=== PATIENT | female | born 1970 | race Caucasian/White ===

== ENCOUNTER 2019-12-11 12:12 | Observation (INO) ==
[2019-12-11 12:53] LABS: Eosinophils # (auto) 0.12 K/uL (0-0.5); Eosinophils % (auto) 1.7 %; Hematocrit (blood only) 39.4 % (37-47); Hemoglobin 13.2 g/dL (12.0-16.0); Immature Granulocytes # (auto) 0.01 K/uL (0.00-0.02); Immature Granulocytes % (auto) 0.1 %; Lymphocytes # (auto) 1.79 K/uL (1.2-3.4); Lymphocytes % (auto) 25.2 %; Mean Corpuscular Hemoglobin 28.7 pg (25-34); Mean Corpuscular Hgb Conc 33.5 g/dL (32-36); Mean Corpuscular Volume 85.7 fL (80-100); Mean Platelet Volume 10.2 fL (7.4-10.4); Monocytes # (auto) 0.52 K/uL (0.11-0.59); Monocytes % (auto) 7.3 %; Neutrophils # (auto) 4.66 K/uL (1.4-6.5); Neutrophils % (auto) 65.7 %; Platelet Count 198 K/uL (130-400); RDW Coefficient of Variation 13.6 % (11.5-14.5); RDW Standard Deviation 42.2 fL (36.4-46.3)
--- NOTE | 2019-12-11 12:54 | XRay Report ---
XR chest 1V portable CLINICAL HISTORY: Chest Pain COMPARISON STUDY: No previous studies for comparison. FINDINGS: The bones soft tissues and hemidiaphragms are normal. The cardiomediastinal silhouette is n ormal. The lungs are clear. The pulmonary vasculature is normal. IMPRESSION: Negative chest. ACT 112: Negative or not required by law. The above report was generated using voice recognition software. It may contain grammatical, syntax or spelling errors. Electronically signed by: Spike Rousseau M.D. 12/11/2019 12:53 PM
[2019-12-11 13:05] LABS: Partial Thromboplastin Time 26.5 Seconds (21.0-31.0); Prothrombin Time 10.2 Seconds (9.0-12.0)
--- NOTE | 2019-12-11 13:07 | Emergency Department Note ---
Entered by Lotus Penn acting as a scribe for History of Present Illness General Chief complaint: Chest Pain Stated complaint: CHEST PAIN Time Seen by Provider: 12/11/19 12:40 Source: patient History of Present Illness Onset (ago): week(s) 2 Location: chest Pain Consistency: + intermittent Maximum Pain Intensity: 1 Quality: + sharp and + other (heaviness) Exacerbated By: not by movement Associated symptoms: + chest pain; no fever/chills and no shortness of breath Treatments prior to arrival: none The patient is a 49 year old female presenting to the Emergency Department complaining of intermittent chest pain starting 2 weeks ago. The patient reports that she has been experiencing sharp chest pains that last for about 10 minutes. She states that her chest pain turned into a heaviness last night. She explains that this heaviness lasted for an hour last night and for about 20 minutes today [employer]. She notes that exertion doesnt onset her chest pain. She adds that she took no medication for her symptoms [employer]. The patient reports that her father from a heart attack at the age of 54. She states that she has siblings but that she is the oldest and that her siblings have not had any pertinent cardiac events. She notes that she used to smoke cigarettes in her 20s but has quit. She adds that she doesn't take any medications regularly. The patient denies shortness of breath, fevers and chills. Past Med/Surg History Medical History (Updated 12/11/19 @ 13:30 by Lotus Penn) History of mammogram Surgical History (Updated 12/11/19 @ 12:52 by Lotus Penn) No pertinent past surgical history Social History Feels Safe at Home: Yes Smoking Status: Former smoker Review of Systems See HPI for pertinent positives & negatives. and A total of 10 systems reviewed and were otherwise negative Physical Exam Vital Signs Vital Signs - 24 hr 12/11/19 12:19 12/11/19 12:48 12/11/19 12:50 Temperature 36.4 C L Temperature Source Oral Pulse Rate 86 88 84 Pulse Rate from SpO2 Sensor 88 83 Respiratory Rate 20 17 18 Blood Pressure 160/102 H Blood Pressure Mean 121 Pulse Oximetry 98 98 96 Oxygen Delivery Method Room Air Sepsis Recent Fever Within 48 Hours No Sepsis Action Taken by Nursing No Action Required 12/11/19 12:53 12/11/19 13:00 12/11/19 13:10 Temperature Temperature Source Pulse Rate 82 78 Pulse Rate from SpO2 Sensor Respiratory Rate 16 14 Blood Pressure 127/86 Blood Pressure Mean 98 Pulse Oximetry 99 Oxygen Delivery Method Room Air Sepsis Recent Fever Within 48 Hours Sepsis Action Taken by Nursing CONSTITUTIONAL/VITAL SIGNS: Reviewed / noted above. GENERAL: Non-toxic in appearance. INTEGUMENTARY: Warm, dry, and [place]. HEAD: Normocephalic. EYES: without scleral icterus or trauma. ENT/OROPHARYNX: clear and moist. LYMPHADENOPATHY/NECK: Is supple without lymphadenopathy or meningismus. RESPIRATORY: Lungs clear and equal. CARDIOVASCULAR: Regular rate and rhythm. GI/ABDOMEN: Soft and nontender. No organomegaly or pulsatile mass. No rebound or guarding. Normal bowel sounds. EXTREMITIES: Warm and well perfused. BACK: No CVA tenderness. NEUROLOGICAL: Intact without focal deficits. PSYCHIATRIC: normal affect. MUSCULOSKELETAL: Normally developed with good muscle tone. Course Course 1244: Previous medical records were reviewed. The patient was evaluated in room B11B. A complete history and physical examination was performed. 1324: I reevaluated the patient at this time. I updated her on her imaging study and lab work. 1330: I discussed the patient's case with Dr. Romano - [facility]. He will evaluate the patient for further management. Administered Medications Discontinued Medications Aspirin (Aspirin) 324 mg PO NOW STA Stop: 12/11/19 13:22 Last Admin: 12/11/19 13:39 Dose: 324 mg Documented by: [id number] Aspirin (Aspirin) Confirm Administered Dose 324 mg .ROUTE .STK-MED ONE Stop: 12/11/19 13:36 Last Admin: 12/11/19 13:39 Dose: Not Given Documented by: [id number] Nitroglycerin (Nitro-Bid 2%) 0.5 inch EXT NOW ONE Stop: 12/11/19 13:22 Last Admin: 12/11/19 13:39 Dose: 0.5 inch Documented by: [id number] Nitroglycerin (Nitro-Bid 2%) Confirm Administered Dose 18 inch .ROUTE .STK-MED ONE Stop: 12/11/19 13:36 Last Admin: 12/11/19 13:39 Dose: Not Given Documented by: [id number] Medical Decision Making Differential Diagnosis Differential diagnoses includes but is not limited to acute coronary syndrome, myocardial infarction, pericarditis, pulmonary embolus, aortic dissection, pneumonia, pneumothorax, musculoskeletal, shingles, esophageal. Medical Records Attestation: I reviewed the patient's medical records. Home Medications Current Medication List: was personally reviewed by me Laboratory Data Attestation: I reviewed the patient's lab results. Result diagrams: 12/11/19 12:45 12/11/19 12:45 Lab Results 12/11/19 12/11/19 12/11/19 Range/Units 12:45 12:45 12:45 WBC 7.10 (4.8-10.8) K/uL RBC 4.60 (4.2-5.4) M/uL Hgb 13.2 (12.0-16.0) g/dL Hct 39.4 (37-47) % MCV 85.7 (80-100) fL MCH 28.7 (25-34) pg MCHC 33.5 (32-36) g/dL RDW Std Deviation 42.2 (36.4-46.3) fL RDW Coeff of Ramón 13.6 (11.5-14.5) % Plt Count 198 (130-400) K/uL MPV 10.2 (7.4-10.4) fL Immature Gran % (Auto) 0.1 % Neut % (Auto) 65.7 % Lymph % (Auto) 25.2 % [place] % (Auto) 7.3 % Eos % (Auto) 1.7 % Baso % (Auto) 0.0 % Immature Gran # (Auto) 0.01 (0.00-0.02) K/uL Neut # (Auto) 4.66 (1.4-6.5) K/uL Lymph # (Auto) 1.79 (1.2-3.4) K/uL [place] # (Auto) 0.52 (0.11-0.59) K/uL Eos # (Auto) 0.12 (0-0.5) K/uL Baso # (Auto) 0.00 (0-0.2) K/uL PT 10.2 (9.0-12.0) Seconds INR 1.0 (0.9-1.1) APTT 26.5 (21.0-31.0) Seconds PTT Ratio 1.0 Sodium 138 (136-145) mmol/L Potassium 3.6 (3.5-5.1) mmol/L Chloride 107 (98-107) mmol/L Carbon Dioxide 25 (21-32) mmol/L Anion Gap 6.0 (3-11) BUN 12 (7-18) mg/dl Creatinine 0.77 (0.6-1.2) mg/dl Est Cr Clr Drug Dosing Not Reportable Est GFR ( Amer) 103.6 Est GFR (Non-Af Amer) 89.4 BUN/Creatinine Ratio 16.0 (10-20) Glucose 123 H (70-99) mg/dl Calcium 8.7 (8.5-10.1) mg/dl Total Bilirubin 0.3 (0.2-1) mg/dl AST 18 (15-37) U/L ALT 29 (12-78) U/L Alkaline Phosphatase 84 (45-117) U/L Troponin I 0.063 H* (0-0.045) ng/ml Total Protein 7.3 (6.4-8.2) gm/dl Albumin 3.3 L (3.4-5.0) gm/dl Globulin 4.0 (2.5-4.0) gm/dl Albumin/Globulin Ratio 0.8 L (0.9-2) Lipase 149 (73-393) U/L Imaging Data Radiologist's Impression: Radiology results as stated below per my review and the radiologist's interpretation: XR chest 1V portable CLINICAL HISTORY: Chest Pain COMPARISON STUDY: No previous studies for comparison. FINDINGS: The bones soft tissues and hemidiaphragms are normal. The cardiomediastinal silhouette is normal. The lungs are clear. The pulmonary vasculature is normal. IMPRESSION: Negative chest. ACT 112: Negative or not required by law. The above report was generated using voice recognition software. It may contain grammatical, syntax or spelling errors. Electronically signed by: Spike Rousseau M.D. 12/11/2019 12:53 PM ECG Data Attestation: I personally reviewed and interpreted this ECG as follows: Indication: + chest pain Rate (beats per minute): 93 Rhythm: + normal sinus ECG Intervals/blocks: + Normal QT-c ECG ST segments: no ST elevation ECG Findings: no PVCs Blood Pressure Blood Pressure Findings: Elevated blood pressure Blood Pressure Disposition: further management by hospitalist MDM Narrative This is a 49-year-old female who presents to the ED with a chief complaint of a sharp pinching-like chest pain in her chest intermittently over the past couple of weeks. It is not exertion related. She states that the last for less than 10 minutes. She also states that she had some heaviness last night and then again at once today. Last night's episode lasted for an hour today lasted for about 20 minutes. It is since resolved. The patient states that she is concerned about her symptoms because her dad at the age of 54 from an [place]. The bad also had other medical problems and was a smoker. The patient is not a smoker. She denies any past medical history. Her vital signs reveal some hypertension. Her physical exam was otherwise unremarkable. A twelve-lead EKG reveals a normal sinus rhythm at a rate of 93 without acute injury or ectopy. Chest x-ray was negative for acute disease. CBC and chemistry panel was normal troponin was elevated at 0.063. The patient was treated with aspirin p.o. as well as subcu Lovenox and Nitropaste. She was told the results of the test. She will be seen by the hospitalist for further evaluation and care. Impression & Plan Non-ST elevation [place] (NSTEMI) Discharge Plan Visit Data Chief Complaint: Chest Pain Stated Complaint: CHEST PAIN ED Provider: Lakhwinder Kirby Discharge Problem: Non-ST elevation [place] (NSTEMI) Patient Disposition: Being Evaluated by Hospitalist Forms Stand Alone Forms: My [facility] Referrals Referrals: Neli Parekh DO [Primary Care Provider] - The scribe's documentation has been prepared under my direction and personally reviewed by me in its entirety. I confirm that the note above accurately reflects all work, treatment, procedures, and medical decision making performed by me.
[2019-12-11 13:09] LABS: Alanine Aminotransferase 29 U/L (12-78); Albumin Level 3.3 gm/dl (3.4-5.0); Aspartate Aminotransferase 18 U/L (15-37); Blood Urea Nitrogen 12 mg/dl (7-18); Calcium 8.7 mg/dl (8.5-10.1); Carbon Dioxide 25 mmol/L (21-32); Chloride 107 mmol/L (98-107); Est GFR (African American) 103.6; Est GFR (Non-African American) 89.4; Glucose 123 mg/dl (70-99); Lipase 149 U/L (73-393); Potassium 3.6 mmol/L (3.5-5.1); Sodium 138 mmol/L (136-145)
[2019-12-11 13:18] LABS: Albumin Globulin Ratio 0.8 (0.9-2); Alkaline Phosphatase 84 U/L (45-117); Bilirubin,Total 0.3 mg/dl (0.2-1); Total Protein 7.3 gm/dl (6.4-8.2); Troponin I 0.063 ng/ml (0-0.045)
[2019-12-11] MEDS ORDERED: ASPIRIN CHEW 324 MG PO STA (13:21)
[2019-12-11] MEDS ORDERED: ENOXAPARIN 100 MG/1ML SYR SQ ONE (13:21)
[2019-12-11] MEDS ORDERED: NITROGLYCERIN 2% OINTMENT 30GM TUBE EXT ONE (13:21)
[2019-12-11] MEDS ORDERED: NITROGLYCERIN 2% OINTMENT 30GM TUBE ONE (13:35)
[2019-12-11] MEDS ORDERED: ASPIRIN CHEW 324 MG ONE (13:35)
--- NOTE | 2019-12-11 14:15 | History & Physical Report ---
Date of Service December 11, 2019 Assessment & Plan (1) Non-ST elevation [place] (NSTEMI): Patient with atypical chest pain symptoms, significant family history, and is very minimally elevated troponin is concerning for a very mild non-STEMI. Therefore, the patient will be admitted. Patient was given a full dose aspirin and will be started on therapeutic dose of Lovenox. I would also like to add a small dose of metoprolol. I will continue to trend cardiac enzymes. Check fasting lipids. I will ask cardiology to evaluate for consideration to non- emergent cardiac cath. Low-dose p.o. Ativan also ordered for anxiety. History of Present Illness Primary Care Provider: Neli Parekh, This is a 49-year-old female without medical history that presents today complaining of chest pain. Patient somewhat emotional but is a good historian. For approximately the last 2 weeks patient has been having intermittent chest pain. Patient tells me the episodes last approximately 5-10minutes and seemed to resolve completely. They do not seem to be related with activity. In fact, she does exercise and do physical things without experiencing this pain. Earlier this morning, the sensation may have woken up for sleep. This made her more concerned and she decided to seek medical attention in the emergency room. Patient describes the pain as a "pinching" although there may be some associated heaviness with this. There are occasional palpitations but these are not consistent. She denies any shortness of breath or significant radiations with this. Pain seems to be substernal or over the left pectoral area. At time my evaluation she was not experiencing any symptoms. Her blood pressure was elevated but I suspect this is due to her being somewhat upset at staying in the hospital. Patient denies all other symptoms, including bowel issues, edema, recent weight changes. Allergies Allergy/AdvReac Type Severity Reaction Status Date / Time No Known Allergies Allergy Unverified 12/11/19 13:57 Home Medications Home Medications Medication Instructions Recorded Confirmed Type No Known Home Medications 12/11/19 12/11/19 History Past Med/Surg History Medical History (Updated 12/11/19 @ 13:30 by Lotus Penn) History of mammogram Surgical History (Updated 12/11/19 @ 12:52 by Lotus Penn) No pertinent past surgical history Social History Feels Safe at Home: Yes Smoking Status: Former smoker Review of Systems Constitutional: no fever, no chills, no weakness, no weight loss and no weight gain Eyes: as per Subjective / HPI Respiratory: no cough, no chest congestion, no dyspnea and no dyspnea on exertion Cardiovascular: + chest pain, + chest pain at rest and + palpitations; no radiating jaw, neck or arm pain, no dyspnea on exertion, no orthopnea, no lightheadedness and no edema Gastrointestinal: no abdominal pain, no nausea, no vomiting, no constipation and no diarrhea/loose stools Genitourinary: no dysuria, no difficulty urinating, no urinary frequency, no urinary hesitancy, no urinary urgency and no flank pain Musculoskeletal: no back pain, no neck pain, no joint pain, no stiffness and no myalgia Integumentary: no rash Neurologic: no gait abnormality, no unsteadiness, no falls and no generalized weakness Physical Exam Constitutional: cooperative; no acute distress Neck: trachea midline, no thyromegaly Respiratory: normal respiratory effort Auscultation: lungs clear to auscultation bilaterally; no crackles, no rales, no rhonchi and no wheezes Cardiovascular: Rate/Rhythm: regular rate and regular rhythm Heart Sounds: normal S1, normal S2 and + murmur Gastrointestinal (Abdomen): Inspection/Auscultation: abdomen normal to inspection Percussion/Palpation: abdomen soft; abdomen nontender, no guarding, abdomen not rigid and no hepatosplenomegaly Skin: no rashes, warm and dry Psychiatric: Patient is somewhat upset but is otherwise awake alert and oriented. Results & Data Vital Signs (Past 12 Hours) Vital Signs Temp Pulse Resp BP Pulse Ox 12/11/19 13:10 78 14 12/11/19 13:00 82 16 127/86 12/11/19 12:53 99 12/11/19 12:50 84 18 96 12/11/19 12:48 88 17 98 12/11/19 12:19 36.4 C L 86 20 160/102 H 98 Laboratory Results Lab work was reviewed and is essentially normal with exception of a glucose of 123. Also of note, her troponin 0 0.063. Diagnostic Findings XR chest 1V portable CLINICAL HISTORY: Chest Pain COMPARISON STUDY: No previous studies for comparison. FINDINGS: The bones soft tissues and hemidiaphragms are normal. The cardiomediastinal silhouette is normal. The lungs are clear. The pulmonary vasculature is normal. IMPRESSION: Negative chest. --- PG Care Time/CCT Total # of Minutes Spent Total Time Spent with Patient: Total time spent is greater than 50% in coordination of care (as documented) at patient's floor/unit and/or counseling patient: Coding Level of Care Code 02767 Initial Inpt Care Lvl 3 Diagnoses Non-ST elevation [place] (NSTEMI) I21.4
[2019-12-11] MEDS ORDERED: LORazepam 0.5 MG TAB PO PRN (16:05)
[2019-12-11] MEDS ORDERED: ZOLPIDEM TARTRATE 5 MG TAB PO PRN (16:05)
[2019-12-11] MEDS ORDERED: ONDANSETRON INJ 2 MG/ML 2 ML VIAL IV PRN (16:05)
[2019-12-11] MEDS ORDERED: ENOXAPARIN 1 MG/KG SC SCH (16:05)
[2019-12-11] MEDS ORDERED: ACETAMINOPHEN 325 MG TAB PO PRN (16:05)
--- NOTE | 2019-12-11 17:56 | Cardiology Consultation ---
Date of Consultation December 11, 2019 Assessment & Plan (1) Chest pain: The patient symptoms of pinching and sharp chest discomfort are clearly noncardiac. The etiology is unclear but this is not related to coronary artery disease or an acute coronary syndrome. The symptoms she had last night could be characteristic of an acute coronary syndrome. However, her symptoms were quite prolonged in nature and her biomarker elevation is very mild. 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 Do not believe she requires continue nitroglycerin. We discussed options for evaluation. Patient had some concerns regarding premature coronary disease in her family. It also appears that another family member had atypical chest pains, normal preliminary evaluation but was discovered to have a maker during catheterization. I did describe the process of catheterization and its attendant risks. I also describe stress testing. At this point I think either would be reasonable evaluation for the patient and who you sure decision making and deciding the best way to proceed. For tonight I think we will simply monitor her on telemetry and watch her biomarker trend. We can decide on an evaluation in the morning. History of Present Illness Reason for Consultation: Chest pain, elevated troponin Requesting Physician: Juan Antonio Attending Physician: Gary Romano, DO History of Present Illness Patient is a 49-year-old woman without a known history of cardiac disease who has been experiencing symptoms of pinching and sharp chest pains for several weeks. These episodes happen randomly. They are not associated with activity. They tend to occur in the left upper chest area. They are not associated with breathing difficulty or dizziness. They are very transient in nature. Last evening the patient had a different sensation which she describes as a heaviness in her chest. She states that this was fairly mild in severity and did not radiate to the neck, back or arms. There was no associated dyspnea. It was not positional in nature. There is no pleuritic component. She feels that the episode lasted for over an hour before she fell asleep. When she woke the next morning she did not have symptoms. She actually exercise for 20 minutes this morning without symptoms. However, while driving later in the day she began experience chest pressure again. She presented to the emergency room where she was administered nitroglycerin paste and eventually had resolution of her symptoms. Cardiac biomarkers were drawn and were felt to be elevated. Therefore, she was admitted for observation. Patient is an active individual who was used to exercising. She has intensified her exercise recently but generally has no limitations associated with activity. She denies limiting dyspnea. She does not have orthopnea. No dizziness or syncope. A very rare palpitation that she describes as a flutter. This is fleeting in nature and not associated with other symptoms. Allergies Allergy/AdvReac Type Severity Reaction Status Date / Time No Known Allergies Allergy Unverified 12/11/19 13:57 Home Medications Home Medications Medication Instructions Recorded Confirmed Type No Known Home Medications 12/11/19 12/11/19 History Patient History Medical History History of mammogram Surgical History No pertinent past surgical history Social History Preferred Language: Macedonian Communication Ability: Effective Quitline Counselor Required: No Beliefs That Will Affect Care: None Current Living Situation: Family Other Information That Helps Us Care for You: No Feels Safe at Home: Yes Safety Concerns: Feels Safe At This Time Smoking Status: Former smoker Do You Dip or Chew Tobacco: No ; Second Hand Exposure: No ; Tobacco Cessation Education Requested by Patient: No Hx Alcohol Use: Yes Hx Substance Use: No Review of Systems Review of Systems: All systems reviewed & are unremarkable except as noted in HPI & below No recent constitutional symptoms such as fevers or chills. Eating and drinking well. Physical Exam Physical Exam: She is alert and oriented x3. Mood affect appear normal. She answered all questions appropriately. HEENT: Sclerae are anicteric. Pupils are equal and reactive to light and accommodation. Extraocular movements were intact. Neuro: Cranial nerves intact Neck: Examination of the submandibular region did not reveal any significant lymphadenopathy. Carotids are palpable bilaterally and free of bruits on auscultation. There was no evidence of jugular venous distention. The thyroid was not enlarged. Lungs: Lungs are clear to auscultation bilaterally. There are no rales wheezes or rhonchi. She has normal respiratory effort without use of accessory muscles. There is normal pulmonary excursion. Cardiac: The rhythm was regular. S1 and S2 were normal. There are no murmurs on examination. The PMI was not markedly displaced on palpation. Abdomen: The abdomen was soft and nontender. Extremities: Patient has bilateral radial pulses that are equal in intensity. There is no evidence cyanosis or clubbing. There was no evidence of significant peripheral edema bilaterally. Skin: There are no rashes noted on examination today. Results & Data ([facility]) Vital Signs (Past 12 Hours) Vital Signs Temp Pulse Pulse Resp BP BP Pulse Ox 12/11/19 16:22 74 12/11/19 16:08 37.3 C 77 18 143/92 H 96 12/11/19 15:29 77 20 155/96 H 98 12/11/19 15:20 77 22 12/11/19 15:10 77 24 12/11/19 15:04 75 21 165/107 H 12/11/19 15:00 76 19 12/11/19 14:50 74 21 12/11/19 14:40 67 19 12/11/19 14:30 67 13 161/108 H 12/11/19 14:20 84 26 H 12/11/19 14:10 77 18 12/11/19 14:00 87 20 160/116 H 12/11/19 13:50 80 13 12/11/19 13:40 78 24 12/11/19 13:39 76 15 151/105 H 97 12/11/19 13:38 83 12/11/19 13:20 80 16 12/11/19 13:10 78 14 12/11/19 13:00 82 16 127/86 12/11/19 12:53 99 12/11/19 12:50 84 18 96 12/11/19 12:48 88 17 98 12/11/19 12:19 36.4 C L 86 20 160/102 H 98 Laboratory Results Abnormal Lab Results 12/11/19 12/11/19 12/11/19 12:45 12:45 12:45 WBC 7.10 RBC 4.60 Hgb 13.2 Hct 39.4 MCV 85.7 MCH 28.7 MCHC 33.5 RDW Std Deviation 42.2 RDW Coeff of Ramón 13.6 Plt Count 198 MPV 10.2 Immature Gran % (Auto) 0.1 Neut % (Auto) 65.7 Lymph % (Auto) 25.2 [place] % (Auto) 7.3 Eos % (Auto) 1.7 Baso % (Auto) 0.0 Immature Gran # (Auto) 0.01 Neut # (Auto) 4.66 Lymph # (Auto) 1.79 [place] # (Auto) 0.52 Eos # (Auto) 0.12 Baso # (Auto) 0.00 PT 10.2 INR 1.0 APTT 26.5 PTT Ratio 1.0 Sodium 138 Potassium 3.6 Chloride 107 Carbon Dioxide 25 Anion Gap 6.0 BUN 12 Creatinine 0.77 Est Cr Clr Drug Dosing Not Reportable Est GFR ( Amer) 103.6 Est GFR (Non-Af Amer) 89.4 BUN/Creatinine Ratio 16.0 Glucose 123 H Calcium 8.7 Total Bilirubin 0.3 AST 18 ALT 29 Alkaline Phosphatase 84 Troponin I 0.063 H* Total Protein 7.3 Albumin 3.3 L Globulin 4.0 Albumin/Globulin Ratio 0.8 L Lipase 149 12/11/19 16:19 WBC RBC Hgb Hct MCV MCH MCHC RDW Std Deviation RDW Coeff of Ramón Plt Count MPV Immature Gran % (Auto) Neut % (Auto) Lymph % (Auto) [place] % (Auto) Eos % (Auto) Baso % (Auto) Immature Gran # (Auto) Neut # (Auto) Lymph # (Auto) [place] # (Auto) Eos # (Auto) Baso # (Auto) PT INR APTT PTT Ratio Sodium Potassium Chloride Carbon Dioxide Anion Gap BUN Creatinine Est Cr Clr Drug Dosing Est GFR ( Amer) Est GFR (Non-Af Amer) BUN/Creatinine Ratio Glucose Calcium Total Bilirubin AST ALT Alkaline Phosphatase Troponin I 0.066 H* Total Protein Albumin Globulin Albumin/Globulin Ratio Lipase Diagnostic Findings Chest x-ray obtained this time admission was normal ECG Additional Comments: EKG obtained at the time of admission was normal PG Care Time/CCT Total # of Minutes Spent Total Time Spent with Patient: Total time spent is greater than 50% in coordination of care (as documented) at patient's floor/unit and/or counseling patient: Coding Level of Care Code 73366 Office/OBS Consult Lvl 4 Diagnoses Chest pain R07.9
[2019-12-11] MEDS: METOPROLOL TARTRATE 25 MG TAB PO SCH (20:02)
[2019-12-11] MEDS: ENOXAPARIN 100 MG/1ML SYR SQ SCH (22:41)
[2019-12-12 06:35] LABS: Basophils # (auto) 0.01 K/uL (0-0.2); Basophils % (auto) 0.1 %; Eosinophils # (auto) 0.11 K/uL (0-0.5); Eosinophils % (auto) 1.6 %; Hematocrit (blood only) 39.7 % (37-47); Hemoglobin 13.3 g/dL (12.0-16.0); Immature Granulocytes # (auto) 0.01 K/uL (0.00-0.02); Immature Granulocytes % (auto) 0.1 %; Lymphocytes # (auto) 2.07 K/uL (1.2-3.4); Mean Corpuscular Hemoglobin 28.8 pg (25-34); Mean Corpuscular Hgb Conc 33.5 g/dL (32-36); Mean Corpuscular Volume 85.9 fL (80-100); Mean Platelet Volume 10.4 fL (7.4-10.4); Monocytes # (auto) 0.65 K/uL (0.11-0.59); Monocytes % (auto) 9.4 %; Neutrophils # (auto) 4.04 K/uL (1.4-6.5); Neutrophils % (auto) 58.8 %; Platelet Count 177 K/uL (130-400); RDW Coefficient of Variation 13.6 % (11.5-14.5); RDW Standard Deviation 42.4 fL (36.4-46.3); Red Blood Count 4.62 M/uL (4.2-5.4); White Blood Count 6.89 K/uL (4.8-10.8)
[2019-12-12 07:07] LABS: BUN Creatinine Ratio 13.7 (10-20); Calcium 8.9 mg/dl (8.5-10.1); Est GFR (African American) 105.3; Est GFR (Non-African American) 90.8; Potassium 4.1 mmol/L (3.5-5.1)
[2019-12-12] MEDS: METOPROLOL TARTRATE 25 MG TAB PO SCH ×2 (08:44→20:10)
[2019-12-12] MEDS: ENOXAPARIN 100 MG/1ML SYR SQ SCH (08:46)
[2019-12-12] MEDS ORDERED: ASPIRIN 325 MG ECTAB PO SCH (09:00)
--- NOTE | 2019-12-12 10:39 | Cardiology Progress Note ---
Date of Service December 12, 2019 Assessment & Plan (1) Chest pain: Think the likelihood that her chest pain represents an acute coronary syndrome is exceedingly low. Is possible that she has some form of coronary disease but her good exercise tolerance in the absence of anginal symptoms with activity would suggest otherwise. She continues to have very mildly elevated cardiac biomarkers and this may simply be her baseline. We did discuss options for evaluation to include noninvasive testing or coronary angiography. He seems to have some concerns regarding a strong family history of coronary disease and undiagnosed coronary disease and other relatives and is currently requesting a cardiac catheterization for evaluation. Did discuss the risks benefits and alternatives. Using shared decision making we have elected to proceed with angiography later today. We will obtain an echocardiogram today as well. Admission and Anticipated Discharge Date Admission Date: December 11, 2019 Subjective Summary the patient claims to be feeling well. Her headache that she had last evening appears to have resolved. She continues to have occasional heaviness in the precordial area. The sensations appear to be fairly mild and relatively fleeting. They are not associated with any changes in position, deep breathing or activity. She also continues to have some sharp chest pains. No prolonged episodes. Review of Systems Review of Systems: Per HPI Physical Exam Physical Exam: She is alert and oriented x3. Mood affect appear normal. She answered all questions appropriately. HEENT: Sclerae are anicteric. Pupils are equal and reactive to light and accommodation. Extraocular movements were intact. Neuro: Cranial nerves intact Lungs: Lungs are clear to auscultation bilaterally. There are no rales wheezes or rhonchi. She has normal respiratory effort without use of accessory muscles. There is normal pulmonary excursion. Cardiac: The rhythm was regular. S1 and S2 were normal. There are no murmurs on examination. The PMI was not markedly displaced on palpation. Abdomen: The abdomen was soft and nontender. Extremities: Patient has bilateral radial pulses that are equal in intensity. There is no evidence cyanosis or clubbing. There was no evidence of significant peripheral edema bilaterally. Skin: There are no rashes noted on examination today. Results & Data ([facility]) Vital Signs (Past 12 Hours) Vital Signs Temp Pulse Pulse Resp BP Pulse Ox 12/12/19 08:00 59 L 12/12/19 07:54 36.5 C 62 18 127/87 96 12/12/19 03:26 36.4 C L 75 18 128/84 95 12/12/19 00:44 59 L 12/11/19 23:58 36.4 C L 66 16 109/70 95 Laboratory Results Abnormal Lab Results 12/11/19 12/11/19 12/11/19 12:45 12:45 12:45 WBC 7.10 RBC 4.60 Hgb 13.2 Hct 39.4 MCV 85.7 MCH 28.7 MCHC 33.5 RDW Std Deviation 42.2 RDW Coeff of Ramón 13.6 Plt Count 198 MPV 10.2 Immature Gran % (Auto) 0.1 Neut % (Auto) 65.7 Lymph % (Auto) 25.2 Whiteside % (Auto) 7.3 Eos % (Auto) 1.7 Baso % (Auto) 0.0 Immature Gran # (Auto) 0.01 Neut # (Auto) 4.66 Lymph # (Auto) 1.79 Whiteside # (Auto) 0.52 Eos # (Auto) 0.12 Baso # (Auto) 0.00 PT 10.2 INR 1.0 APTT 26.5 PTT Ratio 1.0 Sodium 138 Potassium 3.6 Chloride 107 Carbon Dioxide 25 Anion Gap 6.0 BUN 12 Creatinine 0.77 Est Cr Clr Drug Dosing Not Reportable Est GFR ( Amer) 103.6 Est GFR (Non-Af Amer) 89.4 BUN/Creatinine Ratio 16.0 Glucose 123 H Calcium 8.7 Magnesium Total Bilirubin 0.3 AST 18 ALT 29 Alkaline Phosphatase 84 Troponin I 0.063 H* Total Protein 7.3 Albumin 3.3 L Globulin 4.0 Albumin/Globulin Ratio 0.8 L Triglycerides Cholesterol LDL Cholesterol, Calc VLDL Cholesterol, Calc HDL Cholesterol Cholesterol/HDL Ratio Lipase 149 TSH 12/11/19 12/11/19 12/12/19 16:19 21:50 06:16 WBC 6.89 RBC 4.62 Hgb 13.3 Hct 39.7 MCV 85.9 MCH 28.8 MCHC 33.5 RDW Std Deviation 42.4 RDW Coeff of Ramón 13.6 Plt Count 177 MPV 10.4 Immature Gran % (Auto) 0.1 Neut % (Auto) 58.8 Lymph % (Auto) 30.0 Whiteside % (Auto) 9.4 Eos % (Auto) 1.6 Baso % (Auto) 0.1 Immature Gran # (Auto) 0.01 Neut # (Auto) 4.04 Lymph # (Auto) 2.07 Whiteside # (Auto) 0.65 H Eos # (Auto) 0.11 Baso # (Auto) 0.01 PT INR APTT PTT Ratio Sodium Potassium Chloride Carbon Dioxide Anion Gap BUN Creatinine Est Cr Clr Drug Dosing Est GFR ( Amer) Est GFR (Non-Af Amer) BUN/Creatinine Ratio Glucose Calcium Magnesium Total Bilirubin AST ALT Alkaline Phosphatase Troponin I 0.066 H* 0.062 H* Total Protein Albumin Globulin Albumin/Globulin Ratio Triglycerides Cholesterol LDL Cholesterol, Calc VLDL Cholesterol, Calc HDL Cholesterol Cholesterol/HDL Ratio Lipase TSH 12/12/19 06:16 WBC RBC Hgb Hct MCV MCH MCHC RDW Std Deviation RDW Coeff of Ramón Plt Count MPV Immature Gran % (Auto) Neut % (Auto) Lymph % (Auto) Whiteside % (Auto) Eos % (Auto) Baso % (Auto) Immature Gran # (Auto) Neut # (Auto) Lymph # (Auto) Whiteside # (Auto) Eos # (Auto) Baso # (Auto) PT INR APTT PTT Ratio Sodium 139 Potassium 4.1 Chloride 108 H Carbon Dioxide 26 Anion Gap 4.0 BUN 10 Creatinine 0.76 Est Cr Clr Drug Dosing 105.0 Est GFR ( Amer) 105.3 Est GFR (Non-Af Amer) 90.8 BUN/Creatinine Ratio 13.7 Glucose 90 Calcium 8.9 Magnesium 2.0 Total Bilirubin AST ALT Alkaline Phosphatase Troponin I Total Protein Albumin Globulin Albumin/Globulin Ratio Triglycerides 159 H Cholesterol 189 LDL Cholesterol, Calc 111 VLDL Cholesterol, Calc 32 HDL Cholesterol 46 Cholesterol/HDL Ratio 4 Lipase TSH 2.000 PG Care Time/CCT Total # of Minutes Spent Total Time Spent with Patient: Total time spent is greater than 50% in coordination of care (as documented) at patient's floor/unit and/or counseling patient: Coding Level of Care Code 31273 Subseq Obs Care Lvl 2 Diagnoses Chest pain R07.9
--- NOTE | 2019-12-12 10:40 | Pre Anesthesia Assessment ---
Date of Service December 12, 2019 Pre Sedation Assessment Vital Signs Temp Pulse Pulse Resp BP BP Pulse Ox 12/12/19 08:00 59 L 12/12/19 07:54 36.5 C 62 18 127/87 96 12/12/19 03:26 36.4 C L 75 18 128/84 95 12/12/19 00:44 59 L 12/11/19 23:58 36.4 C L 66 16 109/70 95 12/11/19 19:52 36.4 C L 67 20 119/78 96 12/11/19 16:22 74 12/11/19 16:08 37.3 C 77 18 143/92 H 96 12/11/19 15:29 77 20 155/96 H 98 12/11/19 15:20 77 22 12/11/19 15:10 77 24 12/11/19 15:04 75 21 165/107 H 12/11/19 15:00 76 19 12/11/19 14:50 74 21 12/11/19 14:40 67 19 12/11/19 14:30 67 13 161/108 H 12/11/19 14:20 84 26 H 12/11/19 14:10 77 18 12/11/19 14:00 87 20 160/116 H 12/11/19 13:50 80 13 12/11/19 13:40 78 24 12/11/19 13:39 76 15 151/105 H 97 12/11/19 13:38 83 12/11/19 13:20 80 16 12/11/19 13:10 78 14 12/11/19 13:00 82 16 127/86 12/11/19 12:53 99 12/11/19 12:50 84 18 96 12/11/19 12:48 88 17 98 12/11/19 12:19 36.4 C L 86 20 160/102 H 98 Cardiovascular + regular rate Respiratory + respiratory effort normal Pre-Sedation Airway Assessment Smoking Status: Former smoker Hx Sleep Apnea: No Hx Difficult Intubation: No Short, Thick Neck: No Thyromental Distance: > or= 3.5 Finger Breadths Oral Cavity: + WNL Mallampati Class: III ASA: ASA3 Procedure Planning Contraindications for Sedation: none Current Medications Reviewed: Yes Notes The planned sedation has been discussed with the patient. Informed Consent was obtained. I have identified the patient, determined the appropriateness of sedation and have assessed the patient immediately prior to the procedure. All medicine(s) and interventions are by my order.
[2019-12-12] MEDS ORDERED: PERFLUTREN LIPID MICROSPHERE (DEFINITY) IV ONE (11:28)
--- NOTE | 2019-12-12 12:44 | XCELERA ---
[id number] [id number]
--- NOTE | 2019-12-12 14:57 | Electrocardiogram Report ---
Test Reason : Blood Pressure : / mmHG Vent. Rate : 067 BPM Atrial Rate : 067 BPM P-R Int : 156 ms QRS Dur : 092 ms QT Int : 422 ms P-R-T Axes : 034 006 051 degrees QTc Int : 445 ms Normal sinus rhythm Normal ECG When compared with ECG of 11-DEC-2019 12:18, (unconfirmed) No significant change was found Confirmed by Otis Mann ([id number]) on 12/12/2019 2:56:58 PM Referred By: REFERRED SELF Confirmed By:Vitaly Mann
--- NOTE | 2019-12-12 15:08 | Electrocardiogram Report ---
Test Reason : Blood Pressure : / mmHG Vent. Rate : 093 BPM Atrial Rate : 093 BPM P-R Int : 166 ms QRS Dur : 080 ms QT Int : 378 ms P-R-T Axes : 052 020 056 degrees QTc Int : 469 ms Normal sinus rhythm Possible Left atrial enlargement Borderline ECG No previous ECGs available Confirmed by Otis Mann ([id number]) on 12/12/2019 3:08:19 PM Referred By: REFERRED SELF Confirmed By:Vitaly Mann
[2019-12-12] MEDS ORDERED: fentaNYL citrate 100 MCG/2 ML VIAL ONE (15:20)
[2019-12-12] MEDS ORDERED: MIDAZOLAM HCL 1 MG/ML 2ML VIAL ONE (15:20)
[2019-12-12] MEDS ORDERED: NiCARDipine HCL INJ 2.5 MG/ML 10 ML AMP ONE (15:20)
[2019-12-12] MEDS ORDERED: HEPARIN (PORCINE) 1000 UNIT/ML 10 ML (CATH LAB USE ONLY) ONE (15:20)
[2019-12-12] MEDS ORDERED: NITROGLYCERIN/D5W 100MCG/ML 20ML SYR ONE (15:21)
--- NOTE | 2019-12-12 16:04 | Post Anesthesia Assessment ---
Date of Service December 12, 2019 Post Sedation Assessment Vital Signs Temp Pulse Pulse Resp BP Pulse Ox 12/12/19 11:02 36.6 C 56 L 16 120/83 96 12/12/19 08:00 59 L 12/12/19 07:54 36.5 C 62 18 127/87 96 12/12/19 03:26 36.4 C L 75 18 128/84 95 12/12/19 00:44 59 L 12/11/19 23:58 36.4 C L 66 16 109/70 95 12/11/19 19:52 36.4 C L 67 20 119/78 96 12/11/19 16:22 74 12/11/19 16:08 37.3 C 77 18 143/92 H 96 Recovery Score Activity: Moves 4 extremities Respiration: Deep Breath/Cough Circulation: +/-20% PreAnes Value Consciousness: Fully Awake Oxygen Saturation: > 92% On Room Air Discharge Sedation Level of Care: Fast Track Phase II Post Sedation Plan On clinical assessment, the patient appears to have tolerated the sedation without complications. Patient is recovering as anticipated. Patient will continue to be monitored by nursing and may be discharged when sedation discharge criteria are met per below protocol. Upon Completions of procedure up to 15 minutes continue every 5 minute vital signs and the P.A.R. score; then discharge to a Phase I or Fast Track to Phase II per the following guidelines: * Discharge Patient to appropriate Phase II area if PAR is 8 or greater or return to pre- procedure baseline. The post - procedure orders will be as directed. * If PAR score is less than 8 or not return to pre-procedure baseline then patient will follow Phase I monitoring till PAR is reached for Phase II. The Phase I may be done in procedure room or may call to secure a Phase I area. * If naloxone or flumazenil are used for reversal, hold in Phase I for continued monitoring from when last reversal dose was given for a minimum of 60 minutes or longer pending the nurse and/or physician discretion of patient condition before discharge to Phase II. Please call the Sedation Physician to re-evaluate and complete post-note for discharge to Phase II area. Do NOT discharge from procedure sedation or Phase 1 until post- sedation evaluation note is complete by procedure /sedation MD Sedation Discharge Instructions to be given to the patient at discharge to home.
--- NOTE | 2019-12-12 16:04 | Cardiac Catheterization ---
[facility] Data: [employer] Cardiac Status Clinical evaluation leading to the procedure CAD Presenation: Non STEMI Diagnostic Physicians Name: Otis Mann MD Closure Device Recommendations: Medical Therapy and/or Counseling Cardiac Cath Procedure Full Procedure Date December 12, 2019 Pre-Procedure Diagnosis Pre-Procedure Diagnosis: Non STEMI AUC Score AUC Score: 7 Post-Procedure Diagnosis Post-Procedure Diagnosis: Mild CAD Procedure(s) Performed Procedure(s) Performed: Coronary Angiography and Left Heart Cath Dye Padder Operator Otis Mann MD Estimated Blood Loss Estimated Blood Loss: 5cc Medication(s) Medication(s): Fentanyl, Heparin, Lidocaine 1%, Nicardipine, Nitroglycerin and Versed Summary of Findings Indication: The patient is a 49-year-old woman with a history of atypical chest discomfort but elevated cardiac biomarkers who is elected to undergo coronary angiography for diagnostic purposes. Procedure in detail: The patient was informed of the risk benefits and alternatives to the intended procedure. She understood and wished to proceed. She was taken to the cardiac catheterization suite in a fasting state. Conscious addition was administered per protocol and the patient was monitored electrocardiographically throughout today's procedure. The right wrist area was prepped and draped in usual sterile fashion. Area over the right radial artery was anesthetized using subcutaneous ministration of lidocaine solution. Right radial artery was subsequently accessed using Seldinger technique and a 5 Chinese arterial sheath was placed at the site over a guidewire. The sheath was used to facilitate passage of the cardiac catheters for engagement of the coronary arteries and left heart catheterization. Images were taken multiple orthogonal views prior to removal of the catheters and sheath. Hemostasis was achieved at the access site using manual pressure and an arterial band. The patient tolerated procedure well. There were no immediate complications. Equipment used: 5 Chinese [place] 4, 5 Chinese [place] 2 Findings: Coronary angiography Left main: Left main was normal in size and caliber and bifurcated normally into the left anterior descending and left circumflex arteries. Left circumflex: The left circumflex artery was a normal sized vessel which reaches the apex. It produced a medium sized first diagonal branch and a very large branching second diagonal system. There was some additional diminutive diagonals in the distal portion of the vessel. There is no significant disease in this vessel. Left circumflex: Left circumflex was a nondominant vessel. It produced a first large OM system. It produced a medium sized second OM. The ongoing circumflex vessel in between the first and second obtuse marginal branches had approximately 40% stenosis in its midportion. Right coronary artery: The right coronary artery was a dominant vessel. It had some luminal irregularities in its proximal portion with approximately 10% stenosis at the worst segment. There is no other obstructive disease in this distribution. Hemodynamics Rest Ao:: 104/70 mmHg Final Ao: 118/72 mmHg LV: 123 over 5 mmHg, left ventricular end-diastolic pressure 10 mmHg Recommendations Recommendations: Medical Therapy and/or Counseling Radiation Exposure (mGy) q Contrast (mls) 60 Procedural Complication(s) None Disposition PCU I attest to the content of the Intraoperative Record and any orders documented therein. Any exceptions are noted below. [facility] Card Cath Procedure Codes Cardiac Catheterization Procedure 1: Cardiovascular Cath Procedures: 43861 Coronaries and LHC (+/-LV) Moderate Sedation Procedure 1: Sedation/Anesthesia: 61736 Mod Sedation by the same physician;Init15 Min Child Age 5 & Up Procedure 2: Sedation/Anesthesia: 32710 Mod Sedation by the same physician; Ea [id number] Minutes PG Care Time/CCT Total # of Minutes Spent Total Time Spent with Patient: Total time spent is greater than 50% in coordination of care (as documented) at patient's floor/unit and/or counseling patient:
[2019-12-12] MEDS ORDERED: ACETAMINOPHEN 325 MG TAB PO PRN (16:05)
--- NOTE | 2019-12-12 19:45 | Discharge Summary ---
Date of Service December 12, 2019 Admission HPI Per Admitting Provider This is a 49-year-old female without medical history that presents today complaining of chest pain. Patient somewhat emotional but is a good historian. For approximately the last 2 weeks patient has been having intermittent chest pain. Patient tells me the episodes last approximately 5-10minutes and seemed to resolve completely. They do not seem to be related with activity. In fact, she does exercise and do physical things without experiencing this pain. Earlier this morning, the sensation may have woken up for sleep. This made her more concerned and she decided to seek medical attention in the emergency room. Patient describes the pain as a "pinching" although there may be some associated heaviness with this. There are occasional palpitations but these are not consistent. She denies any shortness of breath or significant radiations with this. Pain seems to be substernal or over the left pectoral area. At time my evaluation she was not experiencing any symptoms. Her blood pressure was barbara vated but I suspect this is due to her being somewhat upset at staying in the hospital. Patient denies all other symptoms, including bowel issues, edema, recent weight changes. Principal Diagnosis Chest pain-atypical Discharge Exam Constitutional WD/WN, vitals as above + obese Eyes + anicteric sclerae Neck trachea midline, no thyromegaly Respiratory normal respiratory effort, lungs clear to auscultation Cardiovascular RRR, no murmur, no edema Extremities: no calf tenderness (and negative Darlene's sign bilat) Chest (Breasts) Chest: normal inspection of chest Gastrointestinal (Abdomen) normal bowel sounds, soft, nontender, no hepatosplenomegaly Musculoskeletal Extremities: extremities normal to inspection; no cyanosis and no clubbing Skin no rashes, warm and dry Neurologic moves all extremities and awake; no focal motor deficits Psychiatric A+Ox3, euthymic affect Lymphatic no lymphedema Discharge Data Allergies Allergy/AdvReac Type Severity Reaction Status Date / Time No Known Allergies Allergy Unverified 12/11/19 13:57 Consultations 12/11/19 13:30 ED Decision to Admit Stat 12/11/19 16:05 Consult Cardiology Routine Procedures Performed Operation Date: 12/12/19 13:00 Actual Procedures p Cath, Left with Cors and Vent - Jeremy Mann MD s Cineradiography w/Routine Exam - Jeremy Mann MD Ordered Studies 12/12/19 11:55 CL Cath Imgs for PACS use only Routine 12/12/19 15:16 CL Cath Imgs for PACS use only Routine CXR ECHO Hospital Course (1) Chest pain: Patient presented with atypical central and left sided chest pain symptoms, off and on for 2 weeks. Each time would come on at rest or sometimes after eating, and then woke her from sleep; it did not come on with exertion. Sometimes last a few minutes and longest was one hour. She felt it was pinching in nature, sometimes heavy. No pleuritic pain, no cough, no fevers, no indigestion. No radiation to shoulders, and after reading about cardiac symptoms, thought maybe she felt a little something in her left side of neck. She denied any associated SOB, nausea, diaphoresis. She had complete resolution of symptoms between episodes. No calf pains or leg swelling. ECGs normal, troponin serially 0.06 x 3 occasions ECHO normal except mild MR Pain went away on its own each time. SHe initially was given nitro which gave her a headache, ASA, and low dose metoprolol. SHe was also given Lovenox x 1 dose on admission. Cardiology consulted and felt it was not cardiac, but offered stress test vs cath given +troponin and strong +FH. Pt opted for cardiac cath which showed mild CAD, nonobstructive. Lipid panel fairly good. Do not suspect PE. Very atypical and could be GI vs MSK in nature -start mod dose of atorvastatin 20mg daily for mild CAD, no aspirin needed and no Cardiology follow up needed -trial of Protonix 40mg daily x 2 weeks to see if helps and could point towards GI source -f/u with PCP (2) Elevated troponin: as above, unclear significance, could be normal for her No evidence of pericarditis and does not seem typical clinically for that either (3) CAD (coronary artery disease), [place] coronary artery: mild, as above -starting statin advised Mediterranean diet (4) Mitral regurgitation: mild -f/u with PCP (5) DVT prophylaxis: Lovenox SQ given Dispo-stable for dc to home Total Time Total Time Spent Total Time Spent (In Minutes): 35 min Total Time Includes: Examination of the Patient, Discharge Planning, Medication Reconciliation and Communication With Other Providers (Cardiology) Discharge Plan Discharge Items Patient Disposition: Home - Self-Care Reason For Visit: SP, ELEVATED TROP Discharge Diagnosis: Chest pain-atypical, noncardiac Condition on Discharge: Good Activity: As commented below Lifting: None Lifting Comment: with the right hand Driving/Machine Use: Resume 3 days after discharge Non-emergency contact: Primary Care Provider Call non-emergency contact if: you have any medication questions, your symptoms worsen, your pain is not controlled, your pain is worsening, your pain is unusual for you, your pain is concerning for you, your wound has increased redness, your wound has increased drainage and your wound pain has increased Follow-up/Referrals: Neli Parekh DO [Primary Care Provider] - (Follow up within 1-2 weeks. ) Diet: Heart Healthy Addtl Attending Provider Instructions: You were admitted for chest pains and had a mildly elevated cardiac marker called troponin. This remained only slightly high throughout your hospitalization and it was not felt that you had a heart attack. You had a cardiac catheterization which only showed mild coronary artery disease and the Electrical Installation Supervisor recommended a low dose cholesterol medication called atorvastatin to prevent further plaque buildup in the arteries. Your chest xray was negative and you had no other concerning signs or symptoms for blood clot or pneumonia in the lungs. Your pain resolved prior to discharge. Because your symptoms were coming and going, not exertional, and your cardiac workup was negative, you may have a gastrointestinal cause of your pains. Please trial a 2 week course of Protonix once daily in the morning to see if this prevents you from having further pain. This is an antacid. Follow up with your PCP within 1-2 weeks after discharge. If you have worsening chest pain, shortness of breath, or any other acute concerns, please return to the hospital for further evaluation. ACTIVITY RECOMMENDATIONS: Excess manipulation of the wrist should be avoided for the next 24-48 hours. * No lifting over 2 pounds (approximately a 1/2 gallon of milk) with the utilized arm for 24 hours. * No strenuous activity such as bowling or tennis for 3 days. * Keep the site of the procedure covered with a bandage for 24 hours. *You may shower the day after the procedure. Do not take a tub bath or submerge the puncture site in water for the next 3 days. *Do not operate any motorized equipment for 3 days. SPECIAL CARE INSTRUCTIONS: The site may be slightly bruised and sore following your procedure. Should any of the following occur, contact the Dr. who performed your procedure. 1. Redness/inflammation, swelling, chills, or fever, or colored drainage at procedure site within 3-7 days after your procedure. 2. Coldness, discoloration, ongoing numbness, severe pain, or swelling. Expect mild tingling of hand and tenderness at the puncture site for up to three days. If this persists beyond three days, or other symptoms develop, notify the Dr. who performed your procedure. BLEEDING: If the procedure site on your wrist begins to bleed, do not panic 1. Place 1 or 2 fingers firmly just slightly above the insertion site to stop the bleeding. You may be able to feel your pulse as you hold pressure. 2. Lift your finger after 5 minutes to see if the bleeding has stopped. 3. Once the bleeding has stopped, gently wipe the wrist area clean with a bandage. * If the bleeding from your wrist does not stop after 10 minutes, or if there is a large amount of bleeding or spurting, call 911 (do not drive yourself to the hospital). SKIN IRRITATION: * You may experience some redness and/or swelling in the area where radiation was administered. If any skin irritation occurs, please contact your family physician. FOLLOW UP VISIT: Keep any scheduled doctor appointments. Pending Studies at Discharge: No Stand-Alone Forms: My [facility] Medications and DC Order Prescriptions: New atorvastatin 20 mg tablet 20 mg PO DAILY Qty: 30 RF: 0 pantoprazole [Protonix] 40 mg tablet,delayed release (DR/EC) 40 mg PO DAILY Qty: 14 RF: 0 No Action No Known Home Medications RF: 0 Discharge Orders: Discharge Order (Routine); Ordered 12/12/19 Ordered By: Nimo Carver Admission Data Admit Date/Time: 12/11/19 14:20 Attending Provider: Nimo Carver Admit Provider: Gary Romano Primary Care Provider: Neli Parekh Other Providers: Gary Romano ; Jeremy Alonso Coding Level of Care Code D/C Day Management >30 mins Diagnoses Chest pain R07.9 Elevated troponin R79.89 CAD (coronary artery disease), [place] coronary artery I25.10 Mitral regurgitation I34.0 DVT prophylaxis Z29.9
== END 2019-12-12 20:14 | disposition home or self-care (01) | DRG 287 ==
LOC: ED 12:12 → 2S 14:20 → INTOOBSV 14:20 → SUATTDRO 14:20 → 2S 15:29

== ENCOUNTER 2025-02-21 16:23 | Observation (INO) ==
[2025-02-21 17:21] LABS: Hematocrit (blood only) 41.4 % (37.0-47.0); Hemoglobin 13.9 g/dl (12.0-16.0); Mean Corpuscular Hemoglobin 28.3 pg (25.0-34.0); Mean Corpuscular Hgb Conc 33.6 g/dL (32.0-36.0); Mean Corpuscular Volume 84.3 fL (80.0-100.0); Mean Platelet Volume 10.8 fL (9.4-12.4); Platelet Count 192 K/uL (130-400); RDW Coefficient of Variation 13.2 % (11.5-14.5); RDW Standard Deviation 40.6 fL (36.4-46.3); Red Blood Count 4.91 M/uL (4.20-5.40)
--- NOTE | 2025-02-21 17:23 | CT Scan Report ---
Clinical History: Left arm numbness Technique: Axial computed tomography images were obtained of the brain from the vertex to the skull base without intravenous contrast. Findings: There is no sign of intracranial hemorrhage. There is normal aponte-white matter differentiation with no sign of acute or old infarction. No midline shift or other form of herniation is identified. There is no hydrocephalus. No obvious mass lesion is seen on this noncontrast examination. There is fluid in the visualized right maxillary sinus. The mastoid air cells appear clear Impression: 1. Normal-appearing brain 2. Right maxillary sinusitis Electronically signed by Elijah Goel 02-21-2025 5:22 PM
[2025-02-21 17:40] LABS: Albumin Globulin Ratio 1.4 (0.9-2); Albumin Level 4.3 gm/dl (3.4-5.0); BUN Creatinine Ratio 19.5 (10-20); Bilirubin,Total 0.3 mg/dl (0.2-1.0); Calcium 9.1 mg/dl (8.6-10.3); Creatinine Clr Calc Pharmacy 89.3 ml/min; Magnesium 2.1 mg/dl (1.7-2.4); Total Protein 7.3 gm/dl (6.0-8.3)
--- NOTE | 2025-02-21 17:43 | XRay Report ---
Clinical History: Possible stroke Technique: A frontal view of the chest was obtained Comparison is made to the prior examination dated 08/06/2024 Findings: There are no confluent pulmonary infiltrates. The heart size is within normal limits. No pleural effusion or pneumothorax is seen. There is no definite pulmonary nodule. No fracture is noted. There is mild scoliosis Impression: No active disease Electronically signed by Elijah Goel 02-21-2025 5:43 PM
--- NOTE | 2025-02-21 17:50 | Emergency Department Note ---
Impression & Plan Left sided numbness ED Provider Note NAME: MARIZOL SILVA AGE: 54 SEX: Female INFORMANT: Patient ED PROVIDER(S): Eric Dale MD CHIEF COMPLAINT: Left-sided numbness PLAN: Disposition: Admitted Outpatient prescription management: none Referral: None MEDICAL DECISION MAKING: Patient presented because of left-sided numbness. Symptoms had resolved after about an hour. Stroke alert considered however the patient was asymptomatic. She was hypertensive. Patient is not a TNK candidate based upon resolution of symptoms. Protocol imaging and laboratory testing performed. On my examination patient NIH stroke scale of 0. She was doing well. CT imaging of the head was negative except for mild right sided sinus disease. CBC and chemistry panel was unremarkable. Patient is afebrile. Patient has no nuchal rigidity or headache on examination. CT angiography of the head and neck were added due to the strokelike symptoms. Thankfully this was negative. Further evaluation and management in the hospital be necessary. Oral aspirin was given. Consultation was made with Dr. Thapa of the [facility] service. Case discussed and diagnostics were reviewed. Patient was evaluated in the ER for further management. Care/management discussed with: manager msw Level of care consideration(s): After review of the information above and other included data, I feel the patient requires escalation of care to admission Triage Nursing notes: reviewed and agree them. Vital Signs: reviewed and remarkable for hypertension Additional History obtained from: none Chronic Medical/Social Conditions affecting care: none Prior/ Outside/ External records reviewed: none Differential Diagnosis: CVA, TIA, Infection, dehydration, metabolic abnormality, hypo/hyperglycemia, electrolyte disturbance, anemia, hypoxia, cardiac sources, intracerebral event, toxicologic, neurologic, as well as other pathologies. Diagnostics, independently interpreted by me: ECG: Twelve-lead ECG reveals normal sinus rhythm at [address] LVH. No ST elevation. Cardiac Monitoring: Cardiac monitoring ordered by me: The patient was placed on continuous cardiac monitoring and observed. It revealed a normal sinus rhythm at 80 beats per minute without ectopy or evidence of dysrhythmia. Medical decision rules: none Imaging studies: Head CT: A noncontrast CT scan of the head was performed and was negative for tumor, fracture, intracranial hemorrhage, or other acute pathology. Chest x-ray. Findings: A chest x-ray was performed and revealed no pneumothorax, effusion, infiltrate, pulmonary edema, free air under the diaphragm, or wide mediastinum. Impression: No acute disease. HPI: 54 year old Female arrives for evaluation of left sided numbness. This started 1530 and is now resolved. The patient also notes the following associated symptoms, left face and left arm numbness. The patient has taken no medication relieving factors. Current pain is rated as 0/10. Pt denies LOC, headache, fevers, chills, diaphoresis, visual changes, neck pain, chest pain, breathing difficulties, nausea, vomiting, abdominal pain, back pain, melena, hematochezia, urinary symptoms, weakness, lymphadenopathy, rash, or other complaints. PAST MEDICAL HISTORY: See Below, migraines, lyme PAST SURGICAL HISTORY: See Below, SOCIAL HISTORY: See Below, non-smoker HOME MEDICATIONS: See Below ALLERGIES: See Below VITALS: See Below PHYSICAL EXAMINATION: GENERAL: Awake, alert, well-appearing, in no distress HENT: Normocephalic, atraumatic. Oropharynx unremarkable. EYES: Normal conjunctiva. Sclera non-icteric.PERRL, EOMI NECK: Inspection normal. Non-tender. Supple. No nuchal rigidity. FROM. No masses. RESPIRATORY: Clear to auscultation. No wheezes. No rales. Normal respiratory effort. CARDIAC: Normal rate. Normal rhythm. No murmurs. No rubs. Extremities warm and well perfused. Pulses equal. No JVD. GI: Soft, non-distended. No tenderness to palpation. No rebound or guarding. No masses. RECTAL: Deferred. MUSCULOSKELETAL: Atraumatic. Chest examination reveals no tenderness. The back is symmetrical on inspection without obvious abnormality. There is no CVA tenderness to palpation. No joint edema. LOWER EXTREMITIES: Calves are equal size bilaterally and non-tender. No edema. No discoloration. NEURO: Normal sensorium. No sensory or motor deficits noted. Speech normal, no drift. CN2-12 intact. SKIN: No rash or jaundice noted. PROCEDURES: none CRITICAL CARE: none OBSERVATION NOTE: none Past Med/Surg History Problem List (Updated 02/21/25 @ 17:50 by Eric Dale MD) Left sided numbness (Acute) Cholelithiasis Palpitation Mitral regurgitation Lab test negative for COVID-19 virus (Acute) Colon cancer screening Encounter for pre-operative examination History of mammogram Lyme disease Choledocholithiasis Medical History History of COVID-04 AUG 2022 Acid reflux HX OF / RESOLVED Elevated blood pressure reading 11/22/22 ON EYE EXAM, F/U [facility] WITH PCP 11/24/22 NO SYMPTOMS History of high blood pressure DURING Mitral regurgitation CAD (coronary artery disease), [place] coronary artery Surgical History Hx of cardiac cath C/P...NOV 2019..NO STENT(S) C/P HAS RESOLVED, PT REPORTS BELIEVES IT WAS DUE TO STRESS H/O tympanostomy H/O adenoidectomy Family History Father Myocardial infarction Mother Coronary heart disease Dyslipidemia Grandmother (Maternal) Colorectal cancer Grandmother (Paternal) Cancer Social History (Updated 10/16/24 @ 12:12 by Renay Patterson RN) Smoking Status: Former smoker Second Hand Exposure: No; Do You Dip or Chew Tobacco: No; Hx Alcohol Use: Yes Alcohol type: wine Hx Substance Use: No Preferred Language: Honduran Communication Ability: Effective Hand Candy Molder Required: No Beliefs That Will Affect Care: None marital status: Current Living Situation: Family Current Living Situation Comment: SON current occupational status: employed Feels Safe at Home: Yes Diet: regular during the past year weight has: remained stable Assistive Devices: Glasses Allergies Allergies Allergy/AdvReac Type Severity Reaction Status Date / Time cat dander Allergy Unknown Itchy/ Verified 02/21/25 17:29 Rhinitis No Known Drug Allergies Allergy Unknown Unknown Verified 02/21/25 17:29 Home Meds Home Medications Medication Instructions Recorded Confirmed acetaminophen 500 mg tablet 1,000 mg PO Q6H PRN Pain 08/06/24 02/21/25 ibuprofen 200 mg tablet 200 mg PO Q6H PRN Pain 08/06/24 02/21/25 aspirin 81 mg tablet,delayed 81 mg PO DAILY 10/16/24 02/21/25 release (Adult Low Dose Aspirin) Results & Data (ED) Vital Signs Vital Signs - 24 hr 02/21/25 16:29 02/21/25 17:35 02/21/25 17:35 Temperature 36.7 C Temperature Source Temporal Artery Scan Pulse Rate 70 Pulse Rate [Apical] 63 Respiratory Rate 16 18 Respiratory Effort / Characteristics Non-Labored Spontaneous Non-Labored Spontaneous Respiratory Depth Normal Normal Respiratory Pattern Regular Blood Pressure 156/103 H Blood Pressure [Left Arm] 137/90 Blood Pressure Mean 120 Blood Pressure Mean [Left Arm] 105 Pulse Oximetry 95 96 97 Oxygen Delivery Method Room Air Room Air Room Air Sepsis Recent Fever Within 48 Hours No Sepsis New/Unexplained Change in Mental Status No Sepsis Action Taken by Nursing No Action Required 02/21/25 17:35 02/21/25 18:30 02/21/25 18:40 Temperature Temperature Source Pulse Rate 61 Pulse Rate [Apical] 60 Respiratory Rate 18 Respiratory Effort / Characteristics Non-Labored Spontaneous Respiratory Depth Normal Respiratory Pattern Regular Blood Pressure Blood Pressure [Left Arm] 171/91 H Blood Pressure Mean Blood Pressure Mean [Left Arm] 117 Pulse Oximetry 97 96 Oxygen Delivery Method Room Air Room Air Sepsis Recent Fever Within 48 Hours Sepsis New/Unexplained Change in Mental Status Sepsis Action Taken by Nursing 02/21/25 19:00 Temperature Temperature Source Pulse Rate Pulse Rate [Apical] 61 Respiratory Rate 17 Respiratory Effort / Characteristics Respiratory Depth Respiratory Pattern Blood Pressure Blood Pressure [Left Arm] 174/114 H Blood Pressure Mean Blood Pressure Mean [Left Arm] 134 Pulse Oximetry 97 Oxygen Delivery Method Room Air Sepsis Recent Fever Within 48 Hours Sepsis New/Unexplained Change in Mental Status Sepsis Action Taken by Nursing Laboratory Data 02/21/25 16:55 02/21/25 16:55 Lab Results 02/21/25 Range/Units 16:55 WBC 5.50 (4.8-10.8) K/ul RBC 4.91 (4.20-5.40) M/uL Hgb 13.9 (12.0-16.0) g/dl Hct 41.4 (37.0-47.0) % MCV 84.3 (80.0-100.0) fL MCH 28.3 (25.0-34.0) pg MCHC 33.6 (32.0-36.0) g/dL RDW Std Deviation 40.6 (36.4-46.3) fL RDW Coeff of Ramón 13.2 (11.5-14.5) % Plt Count 192 (130-400) K/uL MPV 10.8 (9.4-12.4) fL PT 10.1 (9.0-12.0) Seconds INR 0.9 (0.9-1.1) APTT 27 (21-31) Seconds PTT Ratio 1.0 Sodium 139 (136-145) mmol/L Potassium 4.0 (3.5-5.1) mmol/L Chloride 107 (98-107) mmol/L Carbon Dioxide 27 (21-32) mmol/L Anion Gap 5 (3-11) BUN 16 (6-23) mg/dl Creatinine 0.82 (0.6-1.2) mg/dl Est Cr Clr Drug Dosing 89.3 ml/min eGFR 83.90 BUN/Creatinine Ratio 19.5 (10-20) Glucose 98 (70-99(Fasting)) mg/dl Calcium 9.1 (8.6-10.3) mg/dl Magnesium 2.1 (1.7-2.4) mg/dl Total Bilirubin 0.3 (0.2-1.0) mg/dl AST 16 (13-39) U/L ALT 14 (7-52) U/L Alkaline Phosphatase 80 (34-104) U/L Total Protein 7.3 (6.0-8.3) gm/dl Albumin 4.3 (3.4-5.0) gm/dl Globulin 3.0 (2.5-4.0) gm/dl Albumin/Globulin Ratio 1.4 (0.9-2) Administered Medications Discontinued Medications Ioversol (Optiray 320 125ml) 118 ml IV ONCE ONE Stop: 02/21/25 18:34 Last Admin: 02/21/25 18:33 Dose: 118 ml Documented By: GES Imaging Data Radiologist's Impression: Chest X-Ray 02/21/25 16:32 Clinical History: Possible stroke Technique: A frontal view of the chest was obtained Comparison is made to the prior examination dated 08/06/2024 Findings: There are no confluent pulmonary infiltrates. The heart size is within normal limits. No pleural effusion or pneumothorax is seen. There is no definite pulmonary nodule. No fracture is noted. There is mild scoliosis Impression: No active disease Electronically signed by Elijah Goel 02-21-2025 5:[address] 02/21/25 16:32 Clinical History: Left arm numbness Technique: Axial computed tomography images were obtained of the brain from the vertex to the skull base without intravenous contrast. Findings: There is no sign of intracranial hemorrhage. There is normal aponte-white matter differentiation with no sign of acute or old infarction. No midline shift or other form of herniation is identified. There is no hydrocephalus. No obvious mass lesion is seen on this noncontrast examination. There is fluid in the visualized right maxillary sinus. The mastoid air cells appear clear Impression: 1. Normal-appearing brain 2. Right maxillary sinusitis Electronically signed by Elijah Goel 02-21-2025 5:22 PM Head CTA 02/21/25 17:55 Clinical history: Left-sided numbness Technique: Axial computed tomography images were obtained of the brain after the administration of intravenous contrast according to the CT angiogram protocol Findings: No definite stenosis or aneurysm is seen of the anterior, middle, or posterior cerebral artery circulations. The visualized vertebral arteries and the basilar artery appear unremarkable Impression: Unremarkable CTA of the brain Electronically signed by Elijah Goel 02-21-2025 7:33 PM Neck CTA 02/21/25 17:55 Clinical history: Left-sided numbness Technique: Axial computed tomography images were obtained of the neck after the administration of intravenous contrast according to the CT angiogram protocol Findings: No stenosis is seen of the common carotid arteries bilaterally. The carotid bulbs appear normal. The remainder of the internal carotid arteries appear patent bilaterally. No stenosis of the external carotid arteries is seen The vertebral arteries are patent bilaterally with no significant stenosis seen. The visualized thoracic aorta appears unremarkable There is right maxillary sinusitis Impression: No definite stenosis of the neck arteries Electronically signed by Elijah Goel 02-21-2025 7:34 PM Discharge Plan Visit Data Chief Complaint: TIA Symptoms Stated Complaint: NUMBNESS LEFT SIDE FACE, HEAD FEELS HEAVY ED Provider: Eric Dale Discharge Problem: Left sided numbness Patient Disposition: Admitted As Inpatient Condition: Good Forms Stand Alone Forms: My [employer] Prescriptions Prescriptions: No Action aspirin [Adult Low Dose Aspirin] 81 mg tablet,delayed release (DR/EC) 81 mg PO DAILY acetaminophen 500 mg Tablet 1,000 mg PO Q6H PRN (Reason: Pain) ibuprofen 200 mg Tablet 200 mg PO Q6H PRN (Reason: Pain) Referrals Referrals: Milton Luu [Primary Care Provider] -
[2025-02-21 17:54] LABS: INR 0.9 (0.9-1.1); Partial Thromboplastin Time 27 Seconds (21-31); Prothrombin Time 10.1 Seconds (9.0-12.0)
[2025-02-21] MEDS: OPTIRAY 320 125ml IV ONE (18:33)
--- NOTE | 2025-02-21 19:34 | CT Scan Report ---
Clinical history: Left-sided numbness Technique: Axial computed tomography images were obtained of the brain after the administration of intravenous contrast according to the CT angiogram protocol Findings: No definite stenosis or aneurysm is seen of the anterior, middle, or posterior cerebral artery circulations. The visualized vertebral arteries and the basilar artery appear unremarkable Impression: Unremarkable CTA of the brain Electronically signed by Elijah Goel 02-21-2025 7:33 PM
--- NOTE | 2025-02-21 19:35 | CT Scan Report ---
Clinical history: Left-sided numbness Technique: Axial computed tomography images were obtained of the neck after the administration of intravenous contrast according to the CT angiogram protocol Findings: No stenosis is seen of the common carotid arteries bilaterally. The carotid bulbs appear normal. The remainder of the internal carotid arteries appear patent bilaterally. No stenosis of the external carotid arteries is seen The vertebral arteries are patent bilaterally with no significant stenosis seen. The visualized thoracic aorta appears unremarkable There is right maxillary sinusitis Impression: No definite stenosis of the neck arteries Electronically signed by Elijah Goel 02-21-2025 7:34 PM
--- NOTE | 2025-02-21 20:04 | History & Physical Report ---
Date of Service February 21, 2025 Assessment & Plan (1) TIA (transient ischemic attack): (2) Primary hypertension: (3) CAD (coronary artery disease): Plan Patient is a 54-year-old female with past medical history of CAD, mitral regurg, GERD. Patient presented after an episode of sudden onset left arm and face numbness and tingling that began when she was resting on her couch, patient stated symptoms began to resolve within 5 to 10 minutes and then fully resolved within an hour. Diagnostic imaging in ED negative for any changes. She is being admitted for stroke workup including echocardiogram and MRI. #TIA - Symptoms now resolved (Not TNK candidate). Diagnostic imaging negative for acute changes - head CT noted right maxillary sinusitis. Laboratories negative. - stroke without TNK order set - active ROM, no IVs left side, Q4H neuro checks - Loading dose ASA given in ED; restart ASA 81mg daily now - start Atorvastatin 40 mg daily - adjust prn with lipid panel ordered - recheck LFTs in 2 weeks - Allow for permissive hypertension with goal parameters 220/110 until MRI resulted - no acute changes seen, decrease systolic <180 - Telemetry monitoring - brain MRI and echo with bubble study ordered - lipid panel and A1C with AM labs - B12 and TSH ordered #HTN - patient with "pre-HTN", no medical management at home. BP elevated in ED and at time of admission. - Permissive hypertension, goal parameters less than 220/110 - labetalol prn #CAD - noted history of, follows with Dr. Mann. - has not been taking baby asa at home; will resume with above VTE ppx: SCDs, low risk Dispo: med/tele - anticipate dc 02/22 after MRI and echo Admission and Anticipated Discharge Date Admission Date: 02/21/25 History of Present Illness Chief Complaint: TIA symptoms Primary Care Provider: Milton Luu Patient is a 54-year-old female with past medical history of CAD, mitral regurg, GERD. Patient presented after an episode of sudden onset left arm and face numbness and tingling that began when she was resting on her couch, patient stated symptoms began to resolve within 5 to 10 minutes and then fully resolved within an hour. Diagnostic imaging in ED negative for any changes. She is being admitted for stroke workup including echocardiogram and MRI. Patient seen at bedside with her mother present. She endorses the above. She stated that she has no history of stroke and denies any family history of stroke or she stated she has prehypertension but is not on any medications for high blood pressure. The pressures been running high in the ED, however WNL for stroke workup and permissive hypertension. She stated she previously followed with cardiology for mitral regurg and CAD however they told her she no longer needs to take baby aspirin so she was taken this in quite a while. Her last echocardiogram was in 2019. She denies any other strokelike symptoms, denies slurred speech, facial droop, dizziness, lightheadedness, confusion, lower extremity numbness or tingling with these forearms, chest pain, shortness of breath. She denies nicotine or alcohol use. She does not use any oxygen at baseline. She wishes to be full code. Allergies Allergy/AdvReac Type Severity Reaction Status Date / Time cat dander Allergy Unknown Itchy/ Verified 02/21/25 17:29 Rhinitis No Known Drug Allergies Allergy Unknown Unknown Verified 02/21/25 17:29 Home Medications Medication Instructions Recorded Confirmed Type acetaminophen 500 mg tablet 1,000 mg PO Q6H PRN Pain 08/06/24 02/21/25 History ibuprofen 200 mg tablet 200 mg PO Q6H PRN Pain 08/06/24 02/21/25 History aspirin 81 mg tablet,delayed 81 mg PO DAILY 10/16/24 02/21/25 History release (Adult Low Dose Aspirin) Past Med/Surg History Problem List (Updated 02/21/25 @ 21:46 by Jahaira Lehman PA-C) CAD (coronary artery disease) Primary hypertension TIA (transient ischemic attack) Left sided numbness (Acute) Cholelithiasis Palpitation Mitral regurgitation Lab test negative for COVID-19 virus (Acute) Colon cancer screening Encounter for pre-operative examination History of mammogram Lyme disease Choledocholithiasis Medical History History of COVID-04 AUG 2022 Acid reflux HX OF / RESOLVED Elevated blood pressure reading 11/22/22 ON EYE EXAM, F/U [facility] WITH PCP 11/24/22 NO SYMPTOMS History of high blood pressure DURING Mitral regurgitation CAD (coronary artery disease), [place] coronary artery Surgical History Hx of cardiac cath C/P...NOV 2019..NO STENT(S) C/P HAS RESOLVED, PT REPORTS BELIEVES IT WAS DUE TO STRESS H/O tympanostomy H/O adenoidectomy Family History Father Myocardial infarction Mother Coronary heart disease Dyslipidemia Grandmother (Maternal) Colorectal cancer Grandmother (Paternal) Cancer Social History (Updated 10/16/24 @ 12:12 by Renay Patterson RN) Smoking Status: Former smoker Smoking End Date: pt states she quit in her 20's; Second Hand Exposure: No; Do You Dip or Chew Tobacco: No; Hx Alcohol Use: Yes Alcohol type: wine Hx Substance Use: No Preferred Language: Greek Communication Ability: Effective Busgirl Required: No Beliefs That Will Affect Care: None marital status: Current Living Situation: Family Current Living Situation Comment: SON current occupational status: employed Other Information That Helps Us Care for You: No Feels Safe at Home: Yes Safety Concerns: Feels Safe At This Time Diet: regular during the past year weight has: remained stable Assistive Devices: Glasses Review of Systems Review of Systems: see HPI Physical Exam Physical Exam: The patient is awake, alert and oriented 3, well developed and well nourished, normocephalic and atraumatic, in no acute distress. Non-toxic appearing. HEENT- EOMI, mucous membranes moist. Hearing grossly intact. Heart-normal S1 and S2. No murmurs, rubs or gallops. Lungs-clear bilaterally, no respiratory distress, no accessory muscle use. Abdomen-normal bowel sounds and soft. No ascites noted. Non-tender. Extremities- no clubbing, cyanosis, or edema. Rheumatologic-normal range of motion. Psychiatric-normal affect. Neurologic: PERRL, EOMI, accommodation nl, no face palsy, no dysarthria no focal motor deficits and not confused Motor/Sensory: no sensory deficit Results & Data Results & Data Vital Signs (Past 12 Hours) Vital Signs Temp Pulse Pulse Resp BP BP Pulse Ox 02/21/25 19:00 61 17 174/114 H 97 02/21/25 18:40 61 02/21/25 18:30 60 18 171/91 H 96 02/21/25 17:35 97 02/21/25 17:35 97 02/21/25 17:35 63 18 137/90 96 02/21/25 16:29 36.7 C 70 16 156/103 H 95 O2 Del Method 02/21/25 19:00 Room Air 02/21/25 18:40 02/21/25 18:30 Room Air 02/21/25 17:35 Room Air 02/21/25 17:35 Room Air 02/21/25 17:35 Room Air 02/21/25 16:29 Room Air Laboratory Results reviewed CBC, CMP, pt/inr, mag Diagnostic Findings reviewed, Neck CTA, head CTA, head CT, CXR Medications Administered ed - asa 324 mg PO ECG Additional Comments: NSR Rate 71 QTc 421 Code Status & VTE Plan Code Status full code VTE Prophylaxis Plan VTE Prophylaxis will be ordered: Yes Supervising Physician Co-Signing Physician Notes patient seen and examined, chart reviewed, case discussed with KLEVER Lehman and I agree with the assessment and plan as document above. In brief, patient is a 54-year-old female with history of coronary artery disease, much regurgitation, GERD presenting with sudden onset of left sided arm and face numbness. Symptoms lasted approximately 1 hour. Patient seen in room 289 bed 2 Reports her symptoms have completely resolved. No additional symptoms at this time + S1, S2, regular, no murmurs/rubs/gallops Lungs CTA Abdomen soft, nontender, nondistended Grossly neurologically intact Labs and images reviewed MRI with no acute findings Assessment/[id number] female with history of coronary artery disease, mitral regurgitation presenting with transient left-sided facial and upper extremity weakness. Symptoms have now completely resolved. Imaging has been negative including negative MRI. Suspect TIA Initiate aspirin and atorvastatin Remainder as above PG Care Time/CCT Total # of Minutes Spent Total Time Spent with Patient: Total time spent is greater than 50% in coordination of care (as documented) at patient's floor/unit and/or counseling patient: Coding Level of Care Code 74006 INT INP/OBS CARE 3/75MIN Diagnoses TIA (transient ischemic attack) G45.9 Primary hypertension I10 CAD (coronary artery disease) I25.10
[2025-02-21] MEDS: ASPIRIN CHEW 324 MG PO STA (20:37)
[2025-02-21] MEDS ORDERED: LABETALOL HCL IV 5 MG/ML 20ML IV PRN (22:07)
[2025-02-21] MEDS ORDERED: MELATONIN 3 MG TAB PO PRN (22:07)
[2025-02-21] MEDS ORDERED: ACETAMINOPHEN 325 MG TAB PO PRN (22:07)
[2025-02-21] MEDS ORDERED: PHARMACIST DISCHARGE MED REC CONSULT PRN (22:07)
[2025-02-21] MEDS ORDERED: DOCUSATE SODIUM 100 MG CAP PO PRN (22:07)
[2025-02-21] MEDS ORDERED: ONDANSETRON INJ 2 MG/ML 2 ML VIAL IV PRN (22:07)
[2025-02-21 22:12] LABS: Thyroid Stimulating Hormone 2.298 uIu/ml (0.300-4.500)
--- NOTE | 2025-02-22 01:04 | Magnetic Resonance Report ---
Exam(s): MRI HEAD Without Contrast EXAM: MR Head Without Intravenous Contrast CLINICAL HISTORY: Reason for exam: stroke workup. TECHNIQUE: Magnetic resonance images of the head/brain without intravenous contrast in multiple planes. COMPARISON: Prior head CT from February 21, 2025. FINDINGS: Brain: Mild nonspecific white matter changes. No mass. No hemorrhage. No acute infarct. The flow voids at the base the brain are intact. There is a developmental venous anomaly in the left temporal and occipital lobe. Ventricles: Unremarkable. No ventriculomegaly. Bones/joints: Unremarkable. No acute fracture. Sinuses: Chronic maxillary, ethmoid and right frontal sinusitis. No acute sinusitis. Mastoid air cells: Unremarkable as visualized. No mastoid effusion. Orbits: Unremarkable as visualized. IMPRESSION: No evidence of acute intracranial pathology. Electronically signed by: Heather Mcnair MD 02/22/25 01:04 AM
[2025-02-22 08:11] VITALS: RESP 20; O2SAT 96
[2025-02-22 08:30] LABS: Basophils # (auto) 0.02 K/uL (0.00-0.20); Basophils % (auto) 0.4 %; Eosinophils # (auto) 0.15 K/uL (0.00-0.50); Eosinophils % (auto) 3.2 %; Hemoglobin 13.4 g/dl (12.0-16.0); Immature Granulocytes # (auto) 0.01 K/uL (0.01-0.20); Immature Granulocytes % (auto) 0.2 %; Lymphocytes % (auto) 40.7 %; Mean Corpuscular Hemoglobin 28.4 pg (25.0-34.0); Mean Corpuscular Hgb Conc 34.4 g/dL (32.0-36.0); Mean Corpuscular Volume 82.6 fL (80.0-100.0); Mean Platelet Volume 10.5 fL (9.4-12.4); Monocytes # (auto) 0.49 K/uL (0.11-0.59); Monocytes % (auto) 10.5 %; Platelet Count 158 K/uL (130-400); RDW Coefficient of Variation 13.3 % (11.5-14.5); RDW Standard Deviation 39.8 fL (36.4-46.3); Red Blood Count 4.72 M/uL (4.20-5.40); White Blood Count 4.67 K/ul (4.8-10.8)
[2025-02-22 08:46] LABS: BUN Creatinine Ratio 20.3 (10-20); Calcium 8.8 mg/dl (8.6-10.3); Creatinine Clr Calc Pharmacy 106.4 ml/min; Potassium 4.2 mmol/L (3.5-5.1)
[2025-02-22] MEDS: ATORVASTATIN 40 MG TAB PO SCH (09:00)
[2025-02-22] MEDS: ASPIRIN 81 MG ECTAB PO SCH (09:00)
[2025-02-22 09:04] LABS: Estimated Average Glucose 100 mg/dl; Hemoglobin A1C 5.1 % (4.5-5.6)
[2025-02-22 11:27] VITALS: BP 124/73; PULSE 64; TEMP 97.7
[2025-02-22] MEDS ORDERED: STROKE PATIENT DISCHARGE STA (13:17)
--- NOTE | 2025-02-22 13:29 | Discharge Summary ---
Discharge Summary Date of Service February 22, 2025 Principal Dx & Hospital Course #1 = Principal Diagnosis (1) TIA (transient ischemic attack): (2) Primary hypertension: (3) CAD (coronary artery disease): Plan 54 years old female with past medical history of FULL CODE @ home, obesity with BMI 36.5 (height 165.1 cm; weight 99.6 kg), CAD, mitral regurgitation, and GERD, who presented to [facility] ER on 02/21/2025 after one episode of sudden onset left arm and face numbness and tingling that began when she was resting on her couch; patient stated that her symptoms began to resolve within 5 to 10 minutes and then fully resolved within an hour. Diagnostic imaging in [facility] ER on observation date 02/21/2025 was negative for any changes. Patient was subsequently placed in OBSERVATION on the hospitalist service @ [facility] on 02/21/2025 with the following diagnosis: 1. TIA, R/O acute CVA. The following medical issues were addressed while the patient remained in [facility] from 02/21/2025 through 02/22/2025: #TIA - Symptoms now resolved (Not TNK candidate). Diagnostic imaging negative for acute changes - CT brain without contrast (02/21/2025, 4:32pm) noted right maxillary sinusitis, but patient remains afebrile with no edvin-pharyngeal/nasal discharge and no right/left maxillary sinus tenderness at all while in [facility]. In addition, routine labs (e.g., CBC w/diff, BMP) were unremarkable. Fasting lipid panel (02/22/2025, 7:56am) revealed total cholesterol 181, LDL 112, HDL 45, TG 121. Patient reports that she will modify her diet, exercise, and/or lifestyle over the next 6 months in order to lower her total cholesterol and LDL levels WITHOUT lipid-lowering therapy on hospital discharge back to home on 02/22/2025. Hence, patient will continue only with her home-scheduled ASA 81mg PO daily on hospital discharge back to home on 02/22/2025. Patient will also follow up with her PCP Dr. Milton uLu within 5 days of hospital discharge to discuss the official TTE (02/22/2025) report. #HTN - patient with "pre-HTN", no medical management at home. BP was elevated in ED and at time of observation with a peak BP 174/114 (02/21/2025, 7:00pm), for which no pharmacologic intervention was warranted given the concept of permissive HTN (with BP as high as 220/120 observed without pharmacologic intervention) in the first 24 hours of a suspected acute ischemic, non- hemorrhagic CVA. Subsequently, patient's BP declined to 136/89 (02/21/2025,9:50pm) followed by D/C BP 124/73 (02/22/2025, 1:21pm) with no anti- HTN medications ordered, administered, or prescribed while patient remained in [facility]. #CAD - noted history of, follows with Dr. Mann. - has not been taking baby asa at home; will resume with above VTE ppx: SCDs, low risk Dispo: med/tele - anticipate dc 02/22 after MRI and echo Admission HPI Per Admitting Provider Patient is a 54-year-old female with past medical history of CAD, mitral regurg, GERD. Patient presented after an episode of sudden onset left arm and face numbness and tingling that began when she was resting on her couch, patient stated symptoms began to resolve within 5 to 10 minutes and then fully resolved within an hour. Diagnostic imaging in ED negative for any changes. She is being admitted for stroke workup including echocardiogram and MRI. Patient seen at bedside with her mother present. She endorses the above. She stated that she has no history of stroke and denies any family history of stroke or she stated she has prehypertension but is not on any medications for high blood pressure. The pressures been running high in the ED, however WNL for stroke workup and permissive hypertension. She stated she previously followed with cardiology for mitral regurg and CAD however they told her she no longer needs to take baby aspirin so she was taken this in quite a while. Her last echocardiogram was in 2019. She denies any other strokelike symptoms, denies slurred speech, facial droop, dizziness, lightheadedness, confusion, lower extremity numbness or tingling with these forearms, chest pain, shortness of breath. She denies nicotine or alcohol use. She does not use any oxygen at baseline. She wishes to be full code. Discharge Plan Discharge Items Patient Disposition: Home - Self-Care Reason For Visit: TIA WORKUP Discharge Diagnosis: TIA, s/p rule out acute CVA. Condition on Discharge: Good Activity: Resume your previous activity Lifting: Gradually increase as tolerated Bathing: No limitations Sexual Activity: When tolerated Driving/Machine Use: No limitations Weightbearing: Full weightbearing Non-emergency contact: Primary Care Provider Call non-emergency contact if: you have any medication questions Follow-up/Referrals: Milton Luu [Primary Care Provider] - Diet: Heart Healthy Addtl Attending Provider Instructions: See your PCP Dr. Milton Luu within 5 days of hospital discharge to discuss official report of 02/22/2025 TTE. Pending Studies at Discharge: Yes Studies:: TTE (02/22/2025) report pending as of 02/22/2025, 1:17pm. Stand-Alone Forms: [employer], Smoking Cessation Medications and DC Order Prescriptions: Continued aspirin [Adult Low Dose Aspirin] 81 mg tablet,delayed release (DR/EC) 81 mg PO DAILY acetaminophen 500 mg Tablet 1,000 mg PO Q6H PRN (Reason: Pain) ibuprofen 200 mg Tablet 200 mg PO Q6H PRN (Reason: Pain) Discharge Orders: Discharge Order (Routine); Ordered 02/22/25 Ordered By: Harshal Garcia Admission Data Admit Date/Time: 02/21/25 20:24 Attending Provider: Harshal Garcia Admit Provider: Dolly Thapa Primary Care Provider: Milton Luu Other Providers: Dolly Thapa Hospital Stay Data Consultations 02/21/25 20:06 ED Decision to Admit Stat Diagnostic Imagining Performed 02/21/25 16:32 CT head/brain wo con Stat 02/21/25 17:55 CT angio head w con Stat CT angio neck with con Stat 02/21/25 22:07 MR brain wo con Routine Pending Results Patient Have Any Pending Studies at Discharge: Yes Discharge Instructions Given to Patient (Per Discharging Provider) See your PCP Dr. Milton Luu within 5 days of hospital discharge to discuss official report of 02/22/2025 TTE. Total Time Total Time Spent Total Time Spent (In Minutes): 35 minutes. Of this time period, 19 minutes were spent in coordinating patient's discharge. Coding Level of Care Code 83921 INP/OBS DISCH >30 MIN Diagnoses TIA (transient ischemic attack) G45.9 Primary hypertension I10 CAD (coronary artery disease) I25.10
--- NOTE | 2025-02-22 17:31 | XCELERA ---
[id number]
--- NOTE | 2025-02-22 21:46 | Electrocardiogram Report ---
Test Reason : Blood Pressure : */* mmHG Vent. Rate : 71 BPM Atrial Rate : 71 BPM P-R Int : 162 ms QRS Dur : 78 ms QT Int : 388 ms P-R-T Axes : 25 -3 56 degrees QTcB Int : 421 ms Normal sinus rhythm Minimal voltage criteria for LVH, may be normal variant ( R in aVL ) Abnormal ECG When compared with ECG of 06-Aug-2024 16:21, No significant change was found Confirmed by Kunal Anderson ([id number]) on 02/22/2025 9:46:44 PM Referred By: REFERRED SELF Confirmed By: Kunal Anderson
== END 2025-02-22 14:10 | disposition home or self-care (01) ==
LOC: ED 16:23 → 2N 16:23 → SUATTDRO 20:24 → 2N 21:50